=== PATIENT | male | born 1955 | race Caucasian/White ===

== ENCOUNTER → 2016-12-13 | Outpatient (CLI) | payer BC ==
[2016-12-13 08:03] LABS: BASOPHILS % (AUTO) 0 % (0-2); EOSINOPHILS # (AUTO) 0.2 10^3uL; EOSINOPHILS % (AUTO) 4 % (0-4); LYMPHOCYTES # (AUTO) 0.8 X10^3; MEAN CORPUSCULAR HEMOGLOBIN 28.4 PG (26.0-34.0); MEAN PLATELET VOLUME 9.7 FL (6.0-9.5); MONOCYTES # (AUTO) 0.3 X10^3; MONOCYTES % (AUTO) 6 % (3-11); NEUTROPHILS # (AUTO) 3.2 X10^3; NEUTROPHILS % (AUTO) 71 % (51-67); PLATELET COUNT 115 10^3uL (150-450); WHITE BLOOD COUNT 4.55 10^3uL (4.0-11.0)
[2016-12-13 08:11] LABS: MEAN CORPUSCULAR VOLUME 79 FL (80-100)
[2016-12-13 08:32] LABS: ALBUMIN 4.1 g/dL (3.4-5.0); ANION GAP 16.8 MEQ/L (3-15); CALCULATED IONIZED CALCIUM 4.2 mg/dL (3.8-4.6); TOTAL PROTEIN 6.7 g/dL (6.4-8.5)
[2016-12-13 09:35] LABS: BILIRUBIN,URINE Negative (Negative); CLARITY,URINE Clear; COLOR,URINE Yellow; GLUCOSE, URINE (UA) Negative (Negative); LEUKOCYTE ESTERASE ,URINE Negative (Negative); PH,URINE 5.5 (5.0 - 8.0); UROBILINOGEN,URINE 0.2 mg/dL (0.2-1.0)
[2016-12-13 09:47] LABS: URINE CENTRIFUGED VOLUME 12 mL
== END ==
LOC: LAB 07:51
PROVIDERS: ATTEND Family Medicine
DX: E11.9 Type 2 diabetes mellitus without complications (principal); I10 Essential (primary) hypertension; N52.1 Erectile dysfunction due to diseases classified elsewhere
CPT/HCPCS: 36415; 80053; 80061; 81003; 81015; 83036; 84153; 84443; 85025

== ENCOUNTER 2017-01-01 11:15 | Outpatient (RCR) | payer BC ==
--- NOTE | 2016-12-20 12:51 | PT/OT/ST INITIAL EVALUATION ---
Department of Health and Human Services Form Approved Health Care Financing Administration OMB No. [id number] PLAN OF CARE/ASSESSMENT FOR OUTPATIENT REHABILITATION (Complete for Initial Claims Only) 1. PATIENT'S NAME Nathaniel Vidales 2. ACC # [id number] 3. [facility] [id number] 4. PROVIDER NO. [id number] 5. TYPE: PT 6. PRIOR HOSPITALIZATION None 7. PRIMARY DX Low back pain 8. SECONDARY DX Lumbar radiculopathy 9. ONSET DATE Several months 10. REFERRAL DATE 12/18/2016 11. SOC. DATE 12/19/2016 12. TIME OF EVAL 14:[address] Alexsander Rivers 13. CHARGES/UNITS Evaluation Therex E-stim 14. G CODES NA 15. PRIOR LEVEL OF FUNCTION; PERTINENT HISTORY (Prior therapy results, reason for referral.) S: Reason for referral: The patient was referred to physical therapy by Dr. Rivers with the diagnosis of lumbar radiculopathy. The patient reports that he has been having increasing pain at his lumbar region for the last several months. The patient has an appointment to see a spine doctor in [place] in January; however, he is leaving for a trip to [place] in the next few weeks and is hoping to get things calmed down before his trip. The patient notes symptoms seem to be worse with prolonged standing. The patient also notes some pain with walking, but generally that is due to his knees if he goes greater than 1 mile. The patient had undergone MRI. It did demonstration herniations of L4, L5 and S1 and some osteoarthritic changes. Occupational and social health history: The patient is retired; however, he enjoys performing outdoor activities. His overall activity level is moderate. Personal health rating: He rates his health as fair. Pain level: He currently rates his pain to be 7/10. Past medical history: Include rheumatoid arthritis, diabetes, heart problems and thyroid problems. Medications: The patient is scheduled to undergo injections at his low back region in the next couple of weeks. 16. INITIAL ASSESSMENT/SAFETY PRECAUTIONS/MEDICAL COMPLICATIONS (Level of function at start of care. Be specific, use objective measures, list problems.) O: APPEARANCE, OBSERVATION AND GAIT: The patient is a healthy looking 61-year-old male. He presents to physical therapy. He demonstrates mild lumbar lordosis with slight anterior pelvic tilt. Trunk stabilization the patient demonstrated fair abdominal firing. PALPATION: The patient did have tenderness to palpation at right and left glute region and tightness into his right buttock region. The patient had increased tenderness with overpressure L4, L5 and S1 region. RANGE OF MOTION/FLEXIBILITY: Trunk flexion 80%, extension 75% with some pain at neutral. Bilateral side bending 75%, rotation normal limits. STRENGTH: Lower extremity strength normal limits. TODAY'S TREATMENT: Treatment included initial evaluation followed by instruction of home exercise program for gentle flexibility and trunk stabilization exercises. Gentle manual traction to the patient's lumbar spine and treatment was ended with pre-mod electric stim with moist heat to L5-S1 region bilaterally. 17. INITIAL POC: (Specify procedures, modalities, short and terminal system operator goals) A: The patient presents to physical therapy with chronic low back pain secondary to arthritic changes. PROGNOSIS: The patient may benefit from flexibility, stabilization and light strengthening activities to help manage pain. SHORT TERM GOALS: 1. The patient to be compliant with home exercise program in 2 weeks. 2. The patient to demonstrate full trunk motion without pain in 4 weeks. 3. The patient to report that he is able to stand and walk for greater distances without having pain in his back in 4 weeks. P: the patient will be seen 2 times a week over the next 4 weeks. Plan on progressing the patient with range of motion, flexibility, stabilization, and light strengthening activities. Modalities and manual therapy will be used as necessary to decrease pain and inflammation. We will continue to educate and instruct the patient on posture and body mechanics prior to his trip. 18. FREQUENCY 2 times per week 19. DURATION 4 weeks 20. FUNCTIONAL LEVEL (End of claim period) 21. PHYSICIAN SIGNATURE ? ON FILE OR ENTER HERE: 22. DATE: I certify the need for these services furnished under this plan of care and if for partial hospitalization. 23. CERTIFICATION FROM THROUGH FORM [facility]-700
== END 2017-01-21 12:06 | disposition home or self-care (01) ==
LOC: PT 11:15
PROVIDERS: ATTEND Family Medicine
DX: M54.16 Radiculopathy, lumbar region (principal)
CPT/HCPCS: 97012; 97110; 97140; 97161; G0283; 97014